=== PATIENT | female | born 1965 | race Caucasian/White ===

== ENCOUNTER 2020-08-08 21:10 | Emergency (ER) | payer OTHER ==
[2020-08-08] MEDS ORDERED: ENDOCET 5-3251 EACH PO (23:40)
[2020-08-08] MEDS ORDERED: ZOVIRAX800 MG PO (23:40)
[2020-08-08] MEDS ORDERED: NEURONTIN300 MG PO (23:40)
== END 2020-08-09 01:10 | disposition home or self-care (01) ==
LOC: FER 21:10
DX: B02.9 Zoster without complications (principal); F17.210 Nicotine dependence, cigarettes, uncomplicated
CPT/HCPCS: 99282